=== PATIENT | male | born 1955 | race Caucasian/White ===

== ENCOUNTER 2020-03-13 11:30 | Day surgery (SDC) | payer BC, OTHER ==
[2020-03-13] MEDS ORDERED: PROPOFOL INJ 200 MG/20 ML VIAL IV ONE ×2 (11:43→13:56)
--- NOTE | 2020-03-13 14:34 | Discharge Summary ---
Discharge Summary (SDC) - Discharge Final Diagnosis: rectal bleeding, internal hemorrhoids, diverticulosis Date of Surgery: 03/13/20 Discharge Date: 03/13/20 Condition: Stable Forms: EU Anesthesia D/C Instructions, Discharge POC-Surgical Service Treatment or Instructions: Discharge home. Diet as tolerated. Activity: Nonstrenuous. Follow-up at [facility] in 3 weeks. Fiber supplement and stool softeners p.o. twice daily. Discharge Diet: As Tolerated Respiratory Treatments at Home: Deep Breathing/Coughing, Incentive Spirometer Discharge Activity: Activity As Tolerated, No Driving Home Care Assistance: None Needed Report the Following to Your Physician Immediately: Shortness of Breath, Nausea, Vomiting, Increase in Pain, Fever over 101 Degrees, IV Site Infection Signs
--- NOTE | 2020-03-13 14:40 | Operative Report ---
Nonrecallable Operative Report DATE OF SURGERY: 03/13/20 PREOPERATIVE DIAGNOSIS: rectal bleeding POSTOPERATIVE DIAGNOSIS: 1. Scattered diverticulosis, without evidence of active diverticulitis. 2. Large internal hemorrhoids. OPERATION: 1. Colonoscopy to the cecum. 2. Rubber band ligation of internal hemorrhoids x3. SURGEON: QUINN RUTHERFORD ANESTHESIA: LMAC TISSUE REMOVED OR ALTERED: None COMPLICATIONS: None apparent ESTIMATED BLOOD LOSS: Minimal PROCEDURE: Procedure in detail: After informed consent was obtained, the patient was brought to the endoscopy suite and laid in the left lateral decubitus position. The endoscope was inserted into the rectum. It was passed up the rectum, sigmoid colon, descending colon, across the transverse colon, down the ascending colon, and into the cecum. The ileocecal valve and appendiceal orifice were identified. The scope was then withdrawn, circumferentially noting the mucosa. The prep was fair. Multiple washings and suctionings were required in order to visualize the entirety of the mucosa. This was successful. The scope was withdrawn past the ascending colon, transverse colon, down the descending colon, and into the sigmoid colon. In the sigmoid colon there were large diverticula scattered throughout. The scope was then withdrawn into the rectum. In the rectum a retroflexion maneuver was performed, noting large internal hemorrhoids. There was no active bleeding. The scope was then straightened, air was suctioned from the rectum, the scope was removed, and this portion of the procedure was concluded. The Hill-Voss retractor was then inserted into the rectum. There were enlarged hemorrhoids in all 3 positions (right anterior, right posterior, left lateral). Rubber bands were used to ligate the enlarged hemorrhoids in all 3 positions. After this was completed, the Hill-Voss retractor was removed, and the procedure was concluded. All sponge, instrument, needle counts were correct x2. Condition: Stable.
[2020-03-13 14:44] VITALS: BP 124/86
== END 2020-03-13 14:45 | disposition home or self-care (01) ==
LOC: END 11:30
PROVIDERS: ATTEND Surgery
DX: K62.5 Hemorrhage of anus and rectum (principal); Z85.048 Personal history of other malignant neoplasm of rectum, rectosigmoid junction, and anus; K64.8 Other hemorrhoids; K57.30 Diverticulosis of large intestine without perforation or abscess without bleeding; I10 Essential (primary) hypertension; Z03.818 Encounter for observation for suspected exposure to other biological agents ruled out; I48.91 Unspecified atrial fibrillation; E78.00 Pure hypercholesterolemia, unspecified; E03.9 Hypothyroidism, unspecified; E11.9 Type 2 diabetes mellitus without complications; Z85.819 Personal history of malignant neoplasm of unspecified site of lip, oral cavity, and pharynx; Z79.01 Long term (current) use of anticoagulants; Z79.84 Long term (current) use of oral hypoglycemic drugs; Z79.899 Other long term (current) drug therapy
CPT/HCPCS: 45378; 46221; 82962; 00811; U0003; J2704; C9803; 811; 87635